=== PATIENT | female | born 1995 | race Two or more races ===

== ENCOUNTER → 2020-07-30 | Emergency (ER) | payer BC ==
[~2020-07-30] VITALS: Ht 157.5 cm; Wt 55.8 kg
== END | disposition home or self-care (01) ==
LOC: ER 21:56
DX: S01.22XA Laceration with foreign body of nose, initial encounter (principal); S61.422A Laceration with foreign body of left hand, initial encounter; S61.421A Laceration with foreign body of right hand, initial encounter; W18.2XXA Fall in (into) shower or empty bathtub, initial encounter; Y93.E1 Activity, personal bathing and showering; Y92.59 Other trade areas as the place of occurrence of the external cause; Y99.8 Other external cause status